=== PATIENT | female | born 1980 | race Caucasian/White ===

== ENCOUNTER 2020-12-07 18:35 | Emergency (ER) | payer MEDICAID ==
[~2020-12-07] VITALS: Ht 144.8 cm; Wt 76.7 kg
[2020-12-07 18:53] VITALS: BP 104/58
--- NOTE | 2020-12-07 18:53 | NUR ---
TO BED AMBULATORY
--- NOTE | 2020-12-07 19:05 | NUR ---
Dr. Toledo is evaluating patient at bedside.
--- NOTE | 2020-12-07 19:06 | NUR ---
40 y/o F BIB self from home c/o abdominal pain +nausea since . Patient A&Ox4, ambulatory, reports pain began ; pain across upper abdomen that is 7/10, tight/constant, radiating to upper back upon palpation. Patient states nausea without vomiting; states episodes of diarrhea on but not today. Denies fever, chills, dysuria, constipation, vomiting at this time. Pt states pain worsens after meals and reports "I feel pain the most when food is going down." Patient denies any medications prior to arrival. Bed locked in lowest position, side rails x 1, call light in reach. PMH/Sx/Meds: hypotension, gabapentin, cholecystectomy 2019 NKA
[2020-12-07] MEDS ORDERED: ALUMINUM HYD/MAG/SIMETHICONE 30 ML UDC PO ONE (19:10)
[2020-12-07] MEDS ORDERED: ONDANSETRON 4 MG ODT PO ONE (19:10)
--- NOTE | 2020-12-07 19:16 | NUR ---
Report and transfer of care endorsed to TRANG Layton.
--- NOTE | 2020-12-07 19:24 | NUR ---
pt is awake and alert, in stable condition. pt reports abd pain 7/10 upper abd. orders carried out.
[2020-12-07 19:27] LABS: BASOPHILS # (AUTO) 0.5 K/uL (0.00-0.22); BASOPHILS % (AUTO) 7.3 % (0.0-2.0); EOSINOPHILS # (AUTO) 0.2 K/uL (0-0.4); EOSINOPHILS % (AUTO) 3.3 % (0.0-4.0); HEMATOCRIT 34.7 % (36-48); HEMOGLOBIN 11.6 g/dL (12.0-16.0); LYMPHOCYTES # (AUTO) 1.4 K/uL (2.5-16.5); LYMPHOCYTES % (AUTO) 20.8 % (20.5-51.1); MEAN CORPUSCULAR HEMOGLOBIN 28 pg (27-31); MEAN CORPUSCULAR HGB CONC 34 g/dL (33-37); MEAN CORPUSCULAR VOLUME 84.5 fL (80-94); MONOCYTES # (AUTO) 0.5 K/uL (0.8-1.0); MONOCYTES % (AUTO) 7.1 % (1.7-9.3); NEUTROPHILS % (AUTO) 61.5 % (42.2-75.2); PLATELET COUNT (AUTO) 296 K/uL (140-450); RED CELL DISTRIBUTION WIDTH 14.4 % (11.6-13.7); WHITE BLOOD COUNT (AUTO) 6.6 K/uL (4.8-10.8)
[2020-12-07 19:35] LABS: ALBUMIN 3.4 g/dL (3.4-5.0); ANION GAP 12.1 (8-16); CARBON DIOXIDE 27.7 mmol/L (21-32); POTASSIUM 3.8 mmol/L (3.5-5.1); TOTAL BILIRUBIN 0.2 mg/dL (0.0-1.0)
--- NOTE | 2020-12-07 19:41 | NUR ---
pt stated pain reduced to 3/10 from 7/10. pt stated her only concern is the tightnes in throat.
[2020-12-07] MEDS ORDERED: ONDA-24 PO (20:34)
[2020-12-07] MEDS ORDERED: OMEP20EC11 PO (20:34)
[2020-12-07 20:43] VITALS: BP 104/58
--- NOTE | 2020-12-07 20:43 | NUR ---
Patient discharged with v/s stable. Written and verbal after care instructions given and explained. Patient alert, oriented and verbalized understanding of instructions. Ambulatory with steady gait. All questions addressed prior to discharge. ID band removed. Patient advised to follow up with PMD. Rx of omeprazole and zofran given. Patient educated on indication of medication including possible reaction and side effects. Opportunity to ask questions provided and answered.
== END 2020-12-07 20:43 | disposition home or self-care (01) ==
LOC: MED 18:35
DX: R10.9 Unspecified abdominal pain (principal); R11.0 Nausea
CPT/HCPCS: 36415; 80053; 81002; 81025; 83690; 85025; 99283; Q0162

== ENCOUNTER 2020-12-14 03:25 | Emergency (ER) | payer MEDICAID ==
[~2020-12-14] VITALS: Ht 144.8 cm; Wt 70.8 kg
[~2020-12-14 03:25] MED LIST: OMEP20EC11 PO; ONDA-24 PO
[2020-12-14 03:30] VITALS: BP 109/70
--- NOTE | 2020-12-14 03:30 | NUR ---
TO [facility] AMBULATORY
--- NOTE | 2020-12-14 04:30 | NUR ---
SEEN AND EXAMINED BY ROGER WITH ORDERS, AND CARRIED OUT
[2020-12-14] MEDS ORDERED: ALUMINUM HYD/MAG/SIMETHICONE 30 ML UDC PO ONE (04:35)
[2020-12-14] MEDS ORDERED: DICYCLOMINE 10 MG CAP PO ONE (04:35)
--- NOTE | 2020-12-14 04:50 | NUR ---
Blood for labwork drawn from [facility]. Patient tolerated WELL.
[2020-12-14 05:06] LABS: BASOPHILS # (AUTO) 0.1 K/uL (0.00-0.22); BASOPHILS % (AUTO) 1.2 % (0.0-2.0); EOSINOPHILS # (AUTO) 0.2 K/uL (0-0.4); EOSINOPHILS % (AUTO) 3.3 % (0.0-4.0); HEMATOCRIT 38.4 % (36-48); HEMOGLOBIN 12.7 g/dL (12.0-16.0); LYMPHOCYTES # (AUTO) 2.4 K/uL (2.5-16.5); MEAN CORPUSCULAR HEMOGLOBIN 28 pg (27-31); MEAN CORPUSCULAR HGB CONC 33 g/dL (33-37); MEAN CORPUSCULAR VOLUME 84.9 fL (80-94); MONOCYTES # (AUTO) 0.4 K/uL (0.8-1.0); MONOCYTES % (AUTO) 6.4 % (1.7-9.3); NEUTROPHILS # (AUTO) 3.4 K/uL (1.8-7.7); NEUTROPHILS % (AUTO) 52.1 % (42.2-75.2); PLATELET COUNT (AUTO) 328 K/uL (140-450); RED BLOOD CELL COUNT(AUTO) 4.52 MIL/uL (4.20-5.40); RED CELL DISTRIBUTION WIDTH 14.4 % (11.6-13.7); WHITE BLOOD COUNT (AUTO) 6.5 K/uL (4.8-10.8)
[2020-12-14 05:25] LABS: ALBUMIN 3.6 g/dL (3.4-5.0); CARBON DIOXIDE 25.2 mmol/L (21-32); CREATININE 0.7 mg/dL (0.6-1.3); POTASSIUM 4.2 mmol/L (3.5-5.1); TOTAL BILIRUBIN 0.3 mg/dL (0.0-1.0)
[2020-12-14] MEDS ORDERED: SUCR1TAB35 PO (06:07)
[2020-12-14 06:20] VITALS: BP 109/70
--- NOTE | 2020-12-14 06:20 | NUR ---
Patient discharged with v/s stable. Written and verbal after care instructions given and explained. Patient alert, oriented and verbalized understanding of instructions. Ambulatory with steady gait. All questions addressed prior to discharge. ID band removed. Patient advised to follow up with PMD. Rx of carafate given. Patient educated on indication of medication including possible reaction and side effects. Opportunity to ask questions provided and answered.
== END 2020-12-14 06:20 | disposition home or self-care (01) ==
LOC: MED 03:25
DX: R10.12 Left upper quadrant pain (principal); R11.0 Nausea; Z79.899 Other long term (current) drug therapy
CPT/HCPCS: 36415; 80053; 83690; 84702; 85025; 99283

== ENCOUNTER 2022-02-27 20:24 | Emergency (ER) | payer MEDICAID ==
[~2022-02-27] VITALS: Ht 149.9 cm; Wt 69.9 kg
[~2022-02-27 20:24] MED LIST changes: +ONDA-188 PO; -ONDA-24 PO; +SUCR1TAB35 PO
--- NOTE | 2022-02-27 20:30 | NUR ---
[place] in [facility] - 02/27/22 at 2100 by MNURPM PT AMBULATE TO ROOM 12. PT IN [facility]
[2022-02-27 20:32] VITALS: BP 104/66
--- NOTE | 2022-02-27 21:11 | NUR ---
PT TAKEN TO BED 8
[2022-02-27 21:20] LABS: APPEARANCE,URINE CLEAR (CLEAR); BILIRUBIN,URINE NEGATIVE (NEGATIVE); BLOOD, URINE TRACE-I (NEGATIVE); COLOR,URINE YELLOW (YELLOW); LEUKOCYTE ESTERASE ,URINE NEGATIVE (NEGATIVE); NITRITE, URINE NEGATIVE (NEGATIVE); UGLUCOSE NEGATIVE (NEGATIVE)
[2022-02-27 21:21] LABS: BASOPHILS % (AUTO) 0.4 % (0.0-2.0); EOSINOPHILS # (AUTO) 0.3 K/uL (0-0.4); EOSINOPHILS % (AUTO) 4.5 % (0.0-4.0); HEMATOCRIT 38.9 % (36-48); LYMPHOCYTES # (AUTO) 1.3 K/uL (2.5-16.5); MEAN CORPUSCULAR HEMOGLOBIN 28 pg (27-31); MEAN CORPUSCULAR HGB CONC 33 g/dL (33-37); MEAN CORPUSCULAR VOLUME 84.5 fL (80-94); MONOCYTES # (AUTO) 0.5 K/uL (0.8-1.0); MONOCYTES % (AUTO) 7.7 % (1.7-9.3); NEUTROPHILS # (AUTO) 4.3 K/uL (1.8-7.7); NEUTROPHILS % (AUTO) 66.4 % (42.2-75.2); PLATELET COUNT (AUTO) 333 K/uL (140-450); WHITE BLOOD COUNT (AUTO) 6.4 K/uL (4.8-10.8)
[2022-02-27 21:39] LABS: WBC,URINE 0-5 /HPF (0-5)
[2022-02-27 21:40] LABS: OTHER CASTS, URINE None Seen /LPF (None Seen)
--- NOTE | 2022-02-27 21:41 | NUR ---
42/F BIB SELF C/C 10/22 "CRAMPING" ABDOMINAL PAIN X 5DAYS. REPORTS +VOMITING X2DAYS. DENIES C/D/URINARY SYMPTOMS/FEVER/CHILLS. LMP 12 PMHX REMOVAL GALLBLADDER NKA
[2022-02-27 21:47] LABS: ALBUMIN 3.4 g/dL (3.4-5.0); ANION GAP 10.8 (8-16); CARBON DIOXIDE 29.7 mmol/L (21-32); CREATININE 0.8 mg/dL (0.6-1.3); POTASSIUM 3.5 mmol/L (3.5-5.1); TOTAL BILIRUBIN 0.4 mg/dL (0.0-1.0)
--- NOTE | 2022-02-27 22:11 | NUR ---
Dr. Bethea examining patient.
--- NOTE | 2022-02-27 22:23 | NUR ---
IV TO RT AC ESTABLISHED. CT CALLED, PT READY FOR SCAN.
--- NOTE | 2022-02-27 22:51 | NUR ---
PT TAKEN TO CT
--- NOTE | 2022-02-27 23:06 | NUR ---
PT RETURN FROM CT
[2022-02-27] MEDS ORDERED: ONDA-188 SL (23:18)
[2022-02-27] MEDS ORDERED: IBUP-2213 PO (23:18)
[2022-02-27 23:40] VITALS: BP 109/65
--- NOTE | 2022-02-27 23:40 | NUR ---
Patient discharged with v/s stable. Written and verbal after care instructions given and explained. Patient alert, oriented and verbalized understanding of instructions. Ambulatory with steady gait. All questions addressed prior to discharge. ID band removed. Patient advised to follow up with PMD. Rx of ZOFRAN AND IBUPROFEN given. Patient educated on indication of medication including possible reaction and side effects. Opportunity to ask questions provided and answered.
== END 2022-02-27 23:40 | disposition home or self-care (01) ==
LOC: MED 20:24
DX: R10.9 Unspecified abdominal pain (principal); R11.2 Nausea with vomiting, unspecified; Z90.49 Acquired absence of other specified parts of digestive tract; Z79.899 Other long term (current) drug therapy
CPT/HCPCS: 36415; 74177; 80053; 81001; 81025; 83690; 85025; 99285; Q9967